=== PATIENT | male | born 1960 | race Caucasian/White ===

== ENCOUNTER 2024-01-05 09:29 | Day surgery (SDC) | payer OTHER ==
[2024-01-05] MEDS: diphenhydrAMINE 25 MG CAP PO SCH (10:45)
[2024-01-05] MEDS: Acetaminophen 500 MG TAB PO SCH (10:45)
[2024-01-05] MEDS: diphenhydrAMINE 25 MG CAP ONE (10:47)
[2024-01-05] MEDS: Acetaminophen 500 MG TAB ONE (10:47)
[2024-01-05 12:16] VITALS: BP 119/56; TEMP 98.4
== END 2024-01-05 12:17 | disposition home or self-care (01) ==
LOC: ONC/OP 09:29
PROVIDERS: ATTEND Internal Medicine
DX: D64.9 Anemia, unspecified (principal); D69.6 Thrombocytopenia, unspecified; Z88.5 Allergy status to narcotic agent; Z91.048 Other nonmedicinal substance allergy status
CPT/HCPCS: 36430; 86850; 86900; 86901; P9035

== ENCOUNTER 2024-01-16 14:49 | Day surgery (SDC) | payer OTHER ==
[2024-01-16] MEDS: Acetaminophen 500 MG TAB ONE (15:35)
[2024-01-16] MEDS ORDERED: diphenhydrAMINE 25 MG CAP PO SCH (16:00)
[2024-01-16] MEDS ORDERED: Acetaminophen 500 MG TAB PO SCH (16:00)
[2024-01-16 16:58] VITALS: BP 125/59; TEMP 98.7
== END 2024-01-16 17:03 | disposition home or self-care (01) ==
LOC: ONC/OP 14:49
PROVIDERS: ATTEND Internal Medicine
DX: D64.9 Anemia, unspecified (principal); D69.6 Thrombocytopenia, unspecified; L23.7 Allergic contact dermatitis due to plants, except food; Z91.09 Other allergy status, other than to drugs and biological substances
CPT/HCPCS: 36430; 86850; 86900; 86901; P9035

== ENCOUNTER 2024-01-26 13:08 | Day surgery (SDC) | payer OTHER ==
[2024-01-26] MEDS ORDERED: diphenhydrAMINE 25 MG CAP PO SCH (14:00)
[2024-01-26] MEDS ORDERED: Acetaminophen 500 MG TAB ONE (14:00)
[2024-01-26] MEDS: Acetaminophen 500 MG TAB PO SCH (14:02)
[2024-01-26 15:19] VITALS: BP 99/56; TEMP 97.9
== END 2024-01-26 15:47 | disposition home or self-care (01) ==
LOC: ONC/OP 13:08
PROVIDERS: ATTEND Internal Medicine
DX: D64.9 Anemia, unspecified (principal); D69.6 Thrombocytopenia, unspecified
CPT/HCPCS: 36430; 86900; 86901; P9035

== ENCOUNTER 2024-02-06 14:41 | Day surgery (SDC) | payer OTHER ==
[2024-02-06] MEDS ORDERED: diphenhydrAMINE 25 MG CAP PO SCH (15:00)
[2024-02-06] MEDS ORDERED: Acetaminophen 500 MG TAB ONE (15:24)
[2024-02-06] MEDS: Acetaminophen 500 MG TAB PO SCH (15:25)
[2024-02-06 17:13] VITALS: BP 92/57; TEMP 99
== END 2024-02-06 17:19 | disposition home or self-care (01) ==
LOC: ONC/OP 14:41
PROVIDERS: ATTEND Nurse Practitioner Family
DX: D64.9 Anemia, unspecified (principal); D69.6 Thrombocytopenia, unspecified; L23.7 Allergic contact dermatitis due to plants, except food; Z88.5 Allergy status to narcotic agent; Z91.09 Other allergy status, other than to drugs and biological substances
CPT/HCPCS: 36430; 86850; 86900; 86901; P9035

== ENCOUNTER 2024-02-09 12:40 | Day surgery (SDC) | payer OTHER ==
[2024-02-09] MEDS ORDERED: Acetaminophen 500 MG TAB ONE (14:43)
[2024-02-09] MEDS ORDERED: diphenhydrAMINE 25 MG CAP ONE (14:44)
[2024-02-09] MEDS: Acetaminophen 500 MG TAB PO SCH (14:45)
[2024-02-09] MEDS: diphenhydrAMINE 25 MG CAP PO SCH (14:46)
[2024-02-09 16:58] VITALS: BP 112/69; TEMP 98.5
== END 2024-02-09 16:59 | disposition home or self-care (01) ==
LOC: ONC/OP 12:40
PROVIDERS: ATTEND Nurse Practitioner Family
DX: D64.9 Anemia, unspecified (principal); D69.49 Other primary thrombocytopenia; Z88.5 Allergy status to narcotic agent; Z91.048 Other nonmedicinal substance allergy status
CPT/HCPCS: 36430; 86850; 86900; 86901; P9016

== ENCOUNTER 2024-02-16 13:09 | Day surgery (SDC) | payer OTHER ==
[2024-02-16] MEDS ORDERED: diphenhydrAMINE 25 MG CAP PO SCH (13:45)
[2024-02-16] MEDS ORDERED: Acetaminophen 500 MG TAB ONE (14:31)
[2024-02-16] MEDS: Acetaminophen 500 MG TAB PO SCH (14:32)
[2024-02-16 17:57] VITALS: BP 123/73; TEMP 97.6
== END 2024-02-16 17:57 | disposition home or self-care (01) ==
LOC: ONC/OP 13:09
PROVIDERS: ATTEND Nurse Practitioner Family
DX: D64.9 Anemia, unspecified (principal); D69.49 Other primary thrombocytopenia; Z91.048 Other nonmedicinal substance allergy status; Z88.5 Allergy status to narcotic agent
CPT/HCPCS: 36430; 86850; 86900; 86901; P9016; P9035

== ENCOUNTER 2024-04-03 08:56 | Day surgery (SDC) | payer OTHER ==
[~2024-04-03 08:56] MED LIST: diphenhydrAMINE 25 MG CAP PO SCH
[2024-04-03] MEDS: Acetaminophen 500 MG TAB PO SCH (10:11)
[2024-04-03] MEDS ORDERED: Acetaminophen 500 MG TAB ONE (10:11)
[2024-04-03 13:40] VITALS: BP 98/63; TEMP 98
== END 2024-04-03 13:28 | disposition home or self-care (01) ==
LOC: ONC/OP 08:56
PROVIDERS: ATTEND Internal Medicine
DX: D64.9 Anemia, unspecified (principal); D69.6 Thrombocytopenia, unspecified
CPT/HCPCS: 36430; 86850; 86900; 86901; P9016; P9035

== ENCOUNTER 2024-04-12 09:38 | Day surgery (SDC) | payer OTHER ==
[2024-04-12] MEDS ORDERED: Acetaminophen 500 MG TAB ONE (10:50)
[2024-04-12] MEDS: Acetaminophen 500 MG TAB PO SCH (10:56)
[2024-04-12 13:22] VITALS: BP 93/58; TEMP 98.7
== END 2024-04-12 13:32 | disposition home or self-care (01) ==
LOC: ONC/OP 09:38
PROVIDERS: ATTEND Internal Medicine
DX: D64.9 Anemia, unspecified (principal); D69.6 Thrombocytopenia, unspecified
CPT/HCPCS: 36430; 86850; 86900; 86901; P9016

== ENCOUNTER 2024-05-07 11:10 | Day surgery (SDC) | payer OTHER ==
[2024-05-07] MEDS ORDERED: Acetaminophen 500 MG TAB PO SCH (12:45)
[2024-05-07] MEDS ORDERED: diphenhydrAMINE 25 MG CAP PO SCH (12:45)
[2024-05-07] MEDS ORDERED: diphenhydrAMINE 50 MG/ML VIAL ONE (13:19)
[2024-05-07] MEDS ORDERED: Dexamethasone 10 MG/ML VIAL ONE (13:19)
[2024-05-07] MEDS: Dexamethasone 10 MG/ML VIAL SLOW IVP SCH (13:20)
[2024-05-07] MEDS: diphenhydrAMINE 50 MG/ML VIAL IVP SCH (13:20)
[2024-05-07 16:52] VITALS: BP 123/72; TEMP 97.9
== END 2024-05-07 17:04 | disposition home or self-care (01) ==
LOC: ONC/OP 11:10
PROVIDERS: ATTEND Internal Medicine
DX: D64.9 Anemia, unspecified (principal); D69.6 Thrombocytopenia, unspecified
CPT/HCPCS: 36430; 86850; 86900; 86901; 96375; J1100; J1200; P9016; P9035

== ENCOUNTER → 2024-05-21 | Day surgery (SDC) | payer OTHER ==
[~2024-05-21] MED LIST changes: +Acetaminophen 500 MG TAB PO SCH; +Dexamethasone 10 MG/ML VIAL ONE; +diphenhydrAMINE 50 MG/ML VIAL ONE
[2024-05-21] MEDS: diphenhydrAMINE 50 MG/ML VIAL IVP SCH (12:42)
[2024-05-21] MEDS: Dexamethasone 10 MG/ML VIAL SLOW IVP SCH (12:42)
[2024-05-21 15:57] VITALS: BP 119/69; TEMP 98.2
== END ==
LOC: ONC/OP 11:14
PROVIDERS: ATTEND Internal Medicine
DX: D64.9 Anemia, unspecified (principal); D69.6 Thrombocytopenia, unspecified; L23.7 Allergic contact dermatitis due to plants, except food; Z91.048 Other nonmedicinal substance allergy status; Z88.5 Allergy status to narcotic agent
CPT/HCPCS: 36430; 86850; 86900; 86901; 96374; 96375; J1100; J1200; P9016; P9035

== ENCOUNTER 2024-05-28 10:40 | Day surgery (SDC) | payer OTHER ==
[2024-05-28] MEDS ORDERED: diphenhydrAMINE 25 MG CAP PO SCH (11:15)
[2024-05-28] MEDS ORDERED: Dexamethasone 10 MG/ML VIAL ONE (12:05)
[2024-05-28] MEDS ORDERED: Acetaminophen 500 MG TAB ONE (12:05)
[2024-05-28] MEDS ORDERED: diphenhydrAMINE 50 MG/ML VIAL ONE (12:05)
[2024-05-28] MEDS: Dexamethasone 10 MG/ML VIAL SLOW IVP SCH (12:06)
[2024-05-28] MEDS: Acetaminophen 500 MG TAB PO SCH (12:06)
[2024-05-28] MEDS: diphenhydrAMINE 50 MG/ML VIAL IVP SCH (12:06)
[2024-05-28 15:34] VITALS: BP 104/71; TEMP 98.2
== END 2024-05-28 15:35 | disposition home or self-care (01) ==
LOC: ONC/OP 10:40
PROVIDERS: ATTEND Internal Medicine
DX: D64.9 Anemia, unspecified (principal); D69.6 Thrombocytopenia, unspecified; L23.7 Allergic contact dermatitis due to plants, except food; Z91.09 Other allergy status, other than to drugs and biological substances; Z88.5 Allergy status to narcotic agent
CPT/HCPCS: 36430; 86850; 86900; 86901; 96374; 96375; J1100; J1200; P9016; P9035

== ENCOUNTER 2024-06-04 10:35 | Day surgery (SDC) | payer OTHER, MEDICARE ==
[2024-06-04] MEDS ORDERED: diphenhydrAMINE 25 MG CAP PO SCH (11:00)
[2024-06-04] MEDS ORDERED: Dexamethasone 10 MG/ML VIAL ONE (11:37)
[2024-06-04] MEDS ORDERED: diphenhydrAMINE 50 MG/ML VIAL ONE (11:38)
[2024-06-04] MEDS: Dexamethasone 10 MG/ML VIAL SLOW IVP SCH (11:39)
[2024-06-04] MEDS: diphenhydrAMINE 50 MG/ML VIAL IVP SCH (11:39)
[2024-06-04] MEDS ORDERED: Acetaminophen 500 MG TAB ONE (11:51)
[2024-06-04] MEDS: Acetaminophen 500 MG TAB PO SCH (11:53)
[2024-06-04 12:48] VITALS: BP 97/73; TEMP 98.2
== END 2024-06-04 12:49 | disposition home or self-care (01) ==
LOC: ONC/OP 10:35
PROVIDERS: ATTEND Internal Medicine
DX: D64.9 Anemia, unspecified (principal); D69.6 Thrombocytopenia, unspecified; Z88.8 Allergy status to other drugs, medicaments and biological substances; Z88.5 Allergy status to narcotic agent; L23.7 Allergic contact dermatitis due to plants, except food; Z91.09 Other allergy status, other than to drugs and biological substances
CPT/HCPCS: 36430; 86850; 86900; 86901; 96374; 96375; J1100; J1200; P9035

== ENCOUNTER 2024-06-11 11:19 | Day surgery (SDC) | payer OTHER, MEDICARE ==
[2024-06-11] MEDS ORDERED: diphenhydrAMINE 25 MG CAP PO SCH (11:45)
[2024-06-11] MEDS ORDERED: Dexamethasone 10 MG/ML VIAL ONE (12:17)
[2024-06-11] MEDS ORDERED: Acetaminophen 500 MG TAB ONE (12:17)
[2024-06-11] MEDS ORDERED: diphenhydrAMINE 50 MG/ML VIAL ONE (12:17)
[2024-06-11] MEDS: Acetaminophen 500 MG TAB PO SCH (12:21)
[2024-06-11] MEDS: Dexamethasone 10 MG/ML VIAL SLOW IVP SCH (12:28)
[2024-06-11] MEDS: diphenhydrAMINE 50 MG/ML VIAL IVP SCH (12:28)
[2024-06-11 15:50] VITALS: BP 131/85; TEMP 99.7
== END 2024-06-11 16:03 | disposition home or self-care (01) ==
LOC: ONC/OP 11:19
PROVIDERS: ATTEND Internal Medicine
DX: D64.9 Anemia, unspecified (principal); D69.6 Thrombocytopenia, unspecified; L23.7 Allergic contact dermatitis due to plants, except food
CPT/HCPCS: 36430; 86850; 86900; 86901; 96374; 96375; J1100; J1200; P9016; P9035

== ENCOUNTER 2024-06-18 10:50 | Day surgery (SDC) | payer OTHER, MEDICARE ==
[2024-06-18] MEDS ORDERED: diphenhydrAMINE 25 MG CAP PO SCH (11:15)
[2024-06-18] MEDS ORDERED: Acetaminophen 500 MG TAB ONE (12:19)
[2024-06-18] MEDS ORDERED: Dexamethasone 10 MG/ML VIAL ONE (12:19)
[2024-06-18] MEDS ORDERED: diphenhydrAMINE 50 MG/ML VIAL ONE (12:19)
[2024-06-18] MEDS: Acetaminophen 500 MG TAB PO SCH (12:21)
[2024-06-18] MEDS: diphenhydrAMINE 50 MG/ML VIAL IVP SCH (12:22)
[2024-06-18] MEDS: Dexamethasone 10 MG/ML VIAL SLOW IVP SCH (12:22)
[2024-06-18 15:29] VITALS: BP 155/79; TEMP 98.1
== END 2024-06-18 15:29 | disposition home or self-care (01) ==
LOC: ONC/OP 10:50
PROVIDERS: ATTEND Internal Medicine
DX: D69.49 Other primary thrombocytopenia (principal); Z88.5 Allergy status to narcotic agent; Z88.8 Allergy status to other drugs, medicaments and biological substances; Z91.09 Other allergy status, other than to drugs and biological substances
CPT/HCPCS: 36430; 86850; 86900; 86901; 96375; J1100; J1200; P9016; P9035

== ENCOUNTER 2024-06-25 10:27 | Day surgery (SDC) | payer OTHER, MEDICARE ==
[2024-06-25] MEDS ORDERED: Acetaminophen 500 MG TAB ONE (13:11)
[2024-06-25] MEDS: diphenhydrAMINE 25 MG CAP PO SCH (13:15)
[2024-06-25] MEDS: Acetaminophen 500 MG TAB PO SCH (13:15)
[2024-06-25 15:17] VITALS: BP 113/72; TEMP 98.2
== END 2024-06-25 15:21 | disposition home or self-care (01) ==
LOC: ONC/OP 10:27
PROVIDERS: ATTEND Internal Medicine
DX: D69.6 Thrombocytopenia, unspecified (principal); D64.9 Anemia, unspecified; Z88.8 Allergy status to other drugs, medicaments and biological substances; Z88.5 Allergy status to narcotic agent; Z91.09 Other allergy status, other than to drugs and biological substances
CPT/HCPCS: 36430; 86850; 86900; 86901; P9035

== ENCOUNTER 2024-06-28 09:36 | Day surgery (SDC) | payer OTHER, MEDICARE ==
[2024-06-28] MEDS ORDERED: diphenhydrAMINE 25 MG CAP ONE (10:46)
[2024-06-28] MEDS ORDERED: Acetaminophen 500 MG TAB ONE (10:46)
[2024-06-28] MEDS: diphenhydrAMINE 25 MG CAP PO SCH (10:47)
[2024-06-28] MEDS: Acetaminophen 500 MG TAB PO SCH (10:47)
[2024-06-28 13:55] VITALS: BP 135/67; TEMP 98.1
== END 2024-06-28 13:57 | disposition home or self-care (01) ==
LOC: ONC/OP 09:36
PROVIDERS: ATTEND Internal Medicine
DX: D64.9 Anemia, unspecified (principal); D69.6 Thrombocytopenia, unspecified
CPT/HCPCS: 36430; 86850; 86900; 86901; P9016

== ENCOUNTER 2024-07-02 13:08 | Day surgery (SDC) | payer OTHER, MEDICARE ==
[2024-07-02] MEDS ORDERED: diphenhydrAMINE 25 MG CAP PO SCH (13:15)
[2024-07-02] MEDS ORDERED: diphenhydrAMINE 50 MG/ML VIAL ONE (13:29)
[2024-07-02] MEDS ORDERED: Dexamethasone 10 MG/ML VIAL ONE (13:29)
[2024-07-02] MEDS ORDERED: Acetaminophen 500 MG TAB ONE (13:29)
[2024-07-02] MEDS: Acetaminophen 500 MG TAB PO SCH (13:32)
[2024-07-02] MEDS: Dexamethasone 10 MG/ML VIAL SLOW IVP SCH (13:33)
[2024-07-02] MEDS: diphenhydrAMINE 50 MG/ML VIAL IVP SCH (13:33)
[2024-07-02 13:55] VITALS: TEMP 98.3
[2024-07-02 14:55] VITALS: BP 130/63
== END 2024-07-02 14:41 | disposition short-term general hospital (02) ==
LOC: ONC/OP 13:08
PROVIDERS: ATTEND Internal Medicine
DX: D64.9 Anemia, unspecified (principal); D69.6 Thrombocytopenia, unspecified; Z88.8 Allergy status to other drugs, medicaments and biological substances; Z88.5 Allergy status to narcotic agent; Z91.09 Other allergy status, other than to drugs and biological substances
CPT/HCPCS: 36430; 86850; 86900; 86901; 99213; G0463; J1100; J1200; P9035

== ENCOUNTER 2024-07-02 14:50 | Emergency (ER) | payer OTHER, MEDICARE ==
[2024-07-02] MEDS ORDERED: diphenhydrAMINE 50 MG/ML VIAL ONE ×2 (15:18→17:19)
[2024-07-02] MEDS ORDERED: EPINEPHrine 1 MG/ML VIAL ONE (15:18)
[2024-07-02] MEDS ORDERED: methylPREDNISolone Sod Succ/PF 125 MG/2 ML VIAL ONE (15:18)
[2024-07-02] MEDS ORDERED: Famotidine/PF 20 mg/2ml Vial ONE (15:18)
[2024-07-02 15:20] LABS: Hematocrit 23.4 % (42.0-52.0); Mean Corpuscular HGB CONC 34.2 g/dL (32.0-36.0); Mean Corpuscular Hemoglobin 30.9 pg (27.0-31.0); Mean Corpuscular Volume 90.3 fL (78.0-98.0); Mean Platelet Volume 9.2 fL (7.4-10.4); Platelet Count 50 10x3/uL (130-400); Red Blood Cell (RBC) Count 2.59 mill/uL (4.70-6.10)
[2024-07-02 15:33] LABS: ALT (SGPT) 41 U/L (8-55); AST (SGOT) 21 U/L (5-34); Albumin 3.5 g/dL (3.4-4.8); Alkaline Phosphatase 143 U/L (40-110); Anion Gap 14 mmol/L (10-20); BUN (Urea Nitrogen) 18 mg/dL (8.4-25.7); Bilirubin, Total 0.3 mg/dL (0.2-1.2); Calc. Creatinine Clearance 0 mL/min (70-130); Calcium 8.5 mg/dL (7.8-10.44); Carbon Dioxide 18 mmol/L (23-31); Chloride 113 mmol/L (98-107); Estimated GFR 84; Globulin 2.9 g/dL (2.4-3.5); Glucose 166 mg/dL (80-115); Potassium 3.7 mmol/L (3.5-5.1); Protein, Total 6.4 g/dL (5.8-8.1); Sodium 141 mmol/L (136-145)
[2024-07-02 15:35] LABS: Troponin I Less than 0.010 ng/mL (< 0.028)
[2024-07-02 15:50] LABS: Anisocytosis SLIGHT = 6-15 cells HPF (0-5); Band 8 % (5-11); Eosinophils 4 % (0-10); Lymphocytes 62 % (21-51); Metamyelocyte 1 % (0-0); Monocytes 4 % (0-10); Neutrophil 8 % (42-75); Ovalocytes SLIGHT = 2-5 cells HPF (0-1); Platelet Adequacy Comment Platelets Decreased; Polychromasia SLIGHT = 2-3 cells HPF (0-2); Reactive Lymphocytes 12 % (0-10); Smudge Cells 46.9 %
[2024-07-02] MEDS ORDERED: Dexamethasone 10 MG/ML VIAL ONE (17:19)
[2024-07-02] MEDS ORDERED: Morphine 2 MG/ML VIAL ONE (17:45)
[2024-07-02] MEDS ORDERED: Acetaminophen 500 MG TAB ONE (17:48)
== END 2024-07-02 17:57 | disposition home or self-care (01) ==
LOC: ERS 14:50
DX: T78.40XA Allergy, unspecified, initial encounter (principal); T80.92XA Unspecified transfusion reaction, initial encounter; I10 Essential (primary) hypertension; F17.210 Nicotine dependence, cigarettes, uncomplicated; Z55.6 Problems related to health literacy; Z79.899 Other long term (current) drug therapy
CPT/HCPCS: 36415; 71045; 83880; 84484; 85025; 93005; 94644; 96372; 96374; 96375; 96376; J0171; J1100; J1200; J2272; J2919; J3490

== ENCOUNTER 2024-07-04 10:18 | Day surgery (SDC) | payer OTHER, MEDICARE ==
[2024-07-04] MEDS ORDERED: diphenhydrAMINE 25 MG CAP ONE (12:07)
[2024-07-04] MEDS ORDERED: Acetaminophen 500 MG TAB ONE (12:07)
[2024-07-04] MEDS: diphenhydrAMINE 25 MG CAP PO SCH (12:08)
[2024-07-04] MEDS: Acetaminophen 500 MG TAB PO SCH (12:08)
[2024-07-04 15:31] VITALS: BP 109/66; TEMP 98.4
== END 2024-07-04 15:49 | disposition home or self-care (01) ==
LOC: ONC/OP 10:18
PROVIDERS: ATTEND Internal Medicine
DX: D64.9 Anemia, unspecified (principal); D69.6 Thrombocytopenia, unspecified; Z88.8 Allergy status to other drugs, medicaments and biological substances; Z88.5 Allergy status to narcotic agent; Z91.09 Other allergy status, other than to drugs and biological substances
CPT/HCPCS: 36430; 86850; 86900; 86901; 87040; P9016

== ENCOUNTER 2024-07-09 09:20 | Day surgery (SDC) | payer OTHER, MEDICARE ==
[2024-07-09] MEDS ORDERED: diphenhydrAMINE 25 MG CAP PO SCH (10:00)
[2024-07-09] MEDS ORDERED: Acetaminophen 500 MG TAB PO SCH (10:00)
[2024-07-09] MEDS ORDERED: diphenhydrAMINE 50 MG/ML VIAL ONE (10:16)
[2024-07-09] MEDS ORDERED: Famotidine/PF 20 mg/2ml Vial ONE (10:16)
[2024-07-09] MEDS ORDERED: Dexamethasone 10 MG/ML VIAL ONE (10:17)
[2024-07-09] MEDS: Dexamethasone 10 MG/ML VIAL SLOW IVP SCH (10:18)
[2024-07-09] MEDS: Famotidine/PF 20 mg/2ml Vial SLOW IVP SCH (10:18)
[2024-07-09] MEDS: diphenhydrAMINE 50 MG/ML VIAL IVP SCH (10:18)
[2024-07-09 11:08] VITALS: TEMP 97.6
[2024-07-09 13:09] VITALS: BP 125/73
== END 2024-07-09 12:14 | disposition home or self-care (01) ==
LOC: ONC/OP 09:20
PROVIDERS: ATTEND Internal Medicine
DX: D69.49 Other primary thrombocytopenia (principal); Z88.8 Allergy status to other drugs, medicaments and biological substances; Z88.5 Allergy status to narcotic agent; Z91.09 Other allergy status, other than to drugs and biological substances
CPT/HCPCS: 36430; 86850; 86900; 86901; J1100; J1200; J3490; P9035

== ENCOUNTER 2024-07-16 09:20 | Day surgery (SDC) | payer OTHER, MEDICARE ==
[2024-07-16] MEDS ORDERED: diphenhydrAMINE 25 MG CAP PO SCH (09:30)
[2024-07-16] MEDS ORDERED: Famotidine/PF 20 mg/2ml Vial ONE (10:33)
[2024-07-16] MEDS ORDERED: Acetaminophen 500 MG TAB ONE (10:33)
[2024-07-16] MEDS ORDERED: diphenhydrAMINE 50 MG/ML VIAL ONE (10:33)
[2024-07-16] MEDS ORDERED: Dexamethasone 10 MG/ML VIAL ONE (10:33)
[2024-07-16] MEDS: Acetaminophen 500 MG TAB PO SCH (10:36)
[2024-07-16] MEDS: Dexamethasone 10 MG/ML VIAL SLOW IVP SCH (10:37)
[2024-07-16] MEDS: Famotidine/PF 20 mg/2ml Vial SLOW IVP SCH (10:37)
[2024-07-16] MEDS: diphenhydrAMINE 50 MG/ML VIAL IVP SCH (10:37)
[2024-07-16 14:03] VITALS: BP 119/84; TEMP 98.3
== END 2024-07-16 14:11 | disposition home or self-care (01) ==
LOC: ONC/OP 09:20
PROVIDERS: ATTEND Internal Medicine
DX: D64.9 Anemia, unspecified (principal); D69.6 Thrombocytopenia, unspecified; Z88.8 Allergy status to other drugs, medicaments and biological substances; Z88.5 Allergy status to narcotic agent; Z91.09 Other allergy status, other than to drugs and biological substances
CPT/HCPCS: 36430; 86850; 86900; 86901; 96374; 96375; J1100; J1200; J3490; P9016; P9035

== ENCOUNTER 2024-07-23 10:02 | Day surgery (SDC) | payer OTHER, MEDICARE ==
[2024-07-23] MEDS ORDERED: diphenhydrAMINE 25 MG CAP PO SCH (10:30)
[2024-07-23] MEDS ORDERED: Dexamethasone 10 MG/ML VIAL ONE (10:42)
[2024-07-23] MEDS ORDERED: Famotidine/PF 20 mg/2ml Vial ONE (10:42)
[2024-07-23] MEDS ORDERED: diphenhydrAMINE 50 MG/ML VIAL ONE (10:42)
[2024-07-23] MEDS ORDERED: Acetaminophen 500 MG TAB ONE (10:42)
[2024-07-23] MEDS: Acetaminophen 500 MG TAB PO SCH (10:43)
[2024-07-23] MEDS: diphenhydrAMINE 50 MG/ML VIAL IVP SCH (10:44)
[2024-07-23] MEDS: Famotidine/PF 20 mg/2ml Vial SLOW IVP SCH (10:44)
[2024-07-23] MEDS: Dexamethasone 10 MG/ML VIAL SLOW IVP SCH (10:44)
[2024-07-23 15:09] VITALS: BP 113/67; TEMP 98.1
== END 2024-07-23 15:00 | disposition home or self-care (01) ==
LOC: ONC/OP 10:02
PROVIDERS: ATTEND Internal Medicine
DX: D64.9 Anemia, unspecified (principal); D69.6 Thrombocytopenia, unspecified; Z88.8 Allergy status to other drugs, medicaments and biological substances; Z88.5 Allergy status to narcotic agent; Z91.048 Other nonmedicinal substance allergy status
CPT/HCPCS: 36430; 86850; 86900; 86901; 96374; 96375; J1100; J1200; J3490; P9016; P9035

== ENCOUNTER 2024-07-30 09:05 | Day surgery (SDC) | payer OTHER, MEDICARE ==
[2024-07-30] MEDS ORDERED: diphenhydrAMINE 25 MG CAP PO SCH (09:45)
[2024-07-30] MEDS ORDERED: diphenhydrAMINE 50 MG/ML VIAL ONE (09:56)
[2024-07-30] MEDS ORDERED: Acetaminophen 500 MG TAB ONE (09:56)
[2024-07-30] MEDS ORDERED: Dexamethasone 10 MG/ML VIAL ONE (09:56)
[2024-07-30] MEDS ORDERED: Famotidine/PF 20 mg/2ml Vial ONE (09:57)
[2024-07-30] MEDS: Acetaminophen 500 MG TAB PO SCH (10:03)
[2024-07-30] MEDS: diphenhydrAMINE 50 MG/ML VIAL IVP SCH (10:04)
[2024-07-30] MEDS: Famotidine/PF 20 mg/2ml Vial SLOW IVP SCH (10:04)
[2024-07-30] MEDS: Dexamethasone 10 MG/ML VIAL SLOW IVP SCH (10:04)
[2024-07-30 13:19] VITALS: BP 137/79; TEMP 97.9
== END 2024-07-30 13:32 | disposition home or self-care (01) ==
LOC: ONC/OP 09:05
PROVIDERS: ATTEND Internal Medicine
DX: D64.9 Anemia, unspecified (principal); D69.6 Thrombocytopenia, unspecified; Z88.8 Allergy status to other drugs, medicaments and biological substances; Z88.5 Allergy status to narcotic agent; Z91.09 Other allergy status, other than to drugs and biological substances
CPT/HCPCS: 36430; 86850; 86900; 86901; 96374; 96375; J1100; J1200; J3490; P9016; P9035

== ENCOUNTER 2024-08-05 09:15 | Day surgery (SDC) | payer OTHER, MEDICARE ==
[~2024-08-05 09:15] MED LIST changes: -Dexamethasone 10 MG/ML VIAL ONE; -diphenhydrAMINE 50 MG/ML VIAL ONE
[2024-08-05] MEDS ORDERED: Dexamethasone 10 MG/ML VIAL ONE (10:27)
[2024-08-05] MEDS ORDERED: diphenhydrAMINE 50 MG/ML VIAL ONE (10:28)
[2024-08-05] MEDS ORDERED: Famotidine/PF 20 mg/2ml Vial ONE (10:28)
[2024-08-05] MEDS: Dexamethasone 10 MG/ML VIAL SLOW IVP SCH (10:29)
[2024-08-05] MEDS: Famotidine/PF 20 mg/2ml Vial SLOW IVP SCH (10:29)
[2024-08-05] MEDS: diphenhydrAMINE 50 MG/ML VIAL IVP SCH (10:29)
[2024-08-05 14:48] VITALS: BP 130/70; TEMP 98.8
== END 2024-08-05 14:50 | disposition home or self-care (01) ==
LOC: ONC/OP 09:15
PROVIDERS: ATTEND Internal Medicine
DX: D64.9 Anemia, unspecified (principal); D69.6 Thrombocytopenia, unspecified; Z88.8 Allergy status to other drugs, medicaments and biological substances; Z88.5 Allergy status to narcotic agent; Z91.09 Other allergy status, other than to drugs and biological substances
CPT/HCPCS: 36430; 86850; 86900; 86901; 96374; 96375; J1100; J1200; J3490; P9016; P9035

== ENCOUNTER 2024-08-12 12:08 | Day surgery (SDC) | payer MEDICARE, OTHER ==
[2024-08-12] MEDS ORDERED: diphenhydrAMINE 50 MG/ML VIAL IVP SCH (12:30)
[2024-08-12] MEDS ORDERED: diphenhydrAMINE 25 MG CAP PO SCH (12:30)
[2024-08-12] MEDS ORDERED: Dexamethasone 10 MG/ML VIAL ONE (13:30)
[2024-08-12] MEDS ORDERED: diphenhydrAMINE 50 MG/ML VIAL ONE (13:30)
[2024-08-12] MEDS ORDERED: Acetaminophen 500 MG TAB ONE (13:30)
[2024-08-12] MEDS: Acetaminophen 500 MG TAB PO SCH (13:31)
[2024-08-12] MEDS ORDERED: Famotidine/PF 20 mg/2ml Vial ONE (13:31)
[2024-08-12] MEDS: Famotidine/PF 20 mg/2ml Vial SLOW IVP SCH (13:32)
[2024-08-12] MEDS: Dexamethasone 10 MG/ML VIAL SLOW IVP SCH (13:34)
[2024-08-12] MEDS: diphenhydrAMINE 50 MG/ML VIAL IVP SCH (13:38)
[2024-08-12 17:10] VITALS: BP 125/72; TEMP 97.8
== END 2024-08-12 17:28 | disposition home or self-care (01) ==
LOC: ONC/OP 12:08
PROVIDERS: ATTEND Internal Medicine
DX: D64.9 Anemia, unspecified (principal); D69.49 Other primary thrombocytopenia; Z88.5 Allergy status to narcotic agent; Z91.09 Other allergy status, other than to drugs and biological substances; D61.89 Other specified aplastic anemias and other bone marrow failure syndromes
CPT/HCPCS: 36430; 86850; 86900; 86901; 86920; 96374; 96375; J1100; J1200; J3490; P9016; P9035; 85025

== ENCOUNTER 2024-08-20 09:24 | Day surgery (SDC) | payer OTHER ==
[2024-08-20] MEDS ORDERED: diphenhydrAMINE 25 MG CAP PO SCH (10:00)
[2024-08-20] MEDS ORDERED: Acetaminophen 500 MG TAB ONE (10:28)
[2024-08-20] MEDS ORDERED: Dexamethasone 10 MG/ML VIAL ONE (10:29)
[2024-08-20] MEDS ORDERED: Famotidine/PF 20 mg/2ml Vial ONE (10:29)
[2024-08-20] MEDS ORDERED: diphenhydrAMINE 50 MG/ML VIAL ONE (10:29)
[2024-08-20] MEDS: Dexamethasone 10 MG/ML VIAL SLOW IVP SCH (10:30)
[2024-08-20] MEDS: Acetaminophen 500 MG TAB PO SCH (10:30)
[2024-08-20] MEDS: Famotidine/PF 20 mg/2ml Vial SLOW IVP SCH (10:31)
[2024-08-20] MEDS: diphenhydrAMINE 50 MG/ML VIAL IVP SCH (10:31)
[2024-08-20 14:11] VITALS: BP 139/74; TEMP 98
== END 2024-08-20 14:12 | disposition home or self-care (01) ==
LOC: ONC/OP 09:24
PROVIDERS: ATTEND Internal Medicine
DX: D64.9 Anemia, unspecified (principal); D69.49 Other primary thrombocytopenia; Z88.8 Allergy status to other drugs, medicaments and biological substances; Z88.5 Allergy status to narcotic agent; Z91.048 Other nonmedicinal substance allergy status
CPT/HCPCS: 36430; 86850; 86900; 86901; 86920; 96374; 96375; J1100; J1200; J3490; P9016; P9035

== ENCOUNTER 2024-08-27 10:06 | Day surgery (SDC) | payer OTHER ==
[2024-08-27] MEDS ORDERED: diphenhydrAMINE 25 MG CAP PO SCH (10:45)
[2024-08-27] MEDS ORDERED: Acetaminophen 500 MG TAB PO SCH (10:45)
[2024-08-27] MEDS ORDERED: Dexamethasone 10 MG/ML VIAL ONE (10:55)
[2024-08-27] MEDS ORDERED: Famotidine/PF 20 mg/2ml Vial ONE (10:56)
[2024-08-27] MEDS ORDERED: diphenhydrAMINE 50 MG/ML VIAL ONE (10:56)
[2024-08-27] MEDS: Famotidine/PF 20 mg/2ml Vial SLOW IVP SCH (10:57)
[2024-08-27] MEDS: Dexamethasone 10 MG/ML VIAL SLOW IVP SCH (10:57)
[2024-08-27] MEDS: diphenhydrAMINE 50 MG/ML VIAL IVP SCH (10:57)
[2024-08-27 12:14] VITALS: BP 130/78; TEMP 97.5
== END 2024-08-27 12:11 | disposition home or self-care (01) ==
LOC: ONC/OP 10:06
PROVIDERS: ATTEND Internal Medicine
DX: D64.9 Anemia, unspecified (principal); D69.6 Thrombocytopenia, unspecified; Z88.8 Allergy status to other drugs, medicaments and biological substances; Z88.5 Allergy status to narcotic agent; Z91.09 Other allergy status, other than to drugs and biological substances
CPT/HCPCS: 36430; 86850; 86900; 86901; J1100; J1200; J3490; P9035

== ENCOUNTER 2024-09-13 08:38 | Day surgery (SDC) | payer OTHER ==
[~2024-09-13 08:38] MED LIST changes: +Dexamethasone 10 MG/ML VIAL SLOW IVP SCH; +Famotidine/PF 20 mg/2ml Vial SLOW IVP SCH; +diphenhydrAMINE 50 MG/ML VIAL IVP SCH
[2024-09-13] MEDS ORDERED: diphenhydrAMINE 50 MG/ML VIAL ONE (09:14)
[2024-09-13] MEDS ORDERED: Famotidine/PF 20 mg/2ml Vial ONE (09:14)
[2024-09-13] MEDS ORDERED: Dexamethasone 10 MG/ML VIAL ONE (09:14)
[2024-09-13 11:09] VITALS: BP 137/68; TEMP 98.5
== END 2024-09-13 11:11 | disposition home or self-care (01) ==
LOC: ONC/OP 08:38
PROVIDERS: ATTEND Internal Medicine
DX: D69.6 Thrombocytopenia, unspecified (principal); D64.9 Anemia, unspecified; Z88.8 Allergy status to other drugs, medicaments and biological substances; Z88.5 Allergy status to narcotic agent; Z91.09 Other allergy status, other than to drugs and biological substances
CPT/HCPCS: 36430; 86850; 86900; 86901; 96374; 96375; J1100; J1200; J3490; P9035

== ENCOUNTER 2024-09-24 09:32 | Day surgery (SDC) | payer OTHER ==
[2024-09-24] MEDS ORDERED: diphenhydrAMINE 25 MG CAP PO SCH (10:15)
[2024-09-24] MEDS ORDERED: Famotidine/PF 20 mg/2ml Vial ONE (10:20)
[2024-09-24] MEDS ORDERED: diphenhydrAMINE 50 MG/ML VIAL ONE (10:20)
[2024-09-24] MEDS ORDERED: Acetaminophen 500 MG TAB ONE (10:20)
[2024-09-24] MEDS ORDERED: Dexamethasone 10 MG/ML VIAL ONE (10:20)
[2024-09-24] MEDS: Acetaminophen 500 MG TAB PO SCH (10:25)
[2024-09-24] MEDS: Famotidine/PF 20 mg/2ml Vial SLOW IVP SCH (10:26)
[2024-09-24] MEDS: Dexamethasone 10 MG/ML VIAL SLOW IVP SCH (10:26)
[2024-09-24] MEDS: diphenhydrAMINE 50 MG/ML VIAL IVP SCH (10:26)
[2024-09-24 12:45] VITALS: BP 133/80; TEMP 98.2
== END 2024-09-24 12:47 | disposition home or self-care (01) ==
LOC: ONC/OP 09:32
PROVIDERS: ATTEND Internal Medicine
DX: D69.49 Other primary thrombocytopenia (principal); D61.89 Other specified aplastic anemias and other bone marrow failure syndromes; Z88.8 Allergy status to other drugs, medicaments and biological substances; Z88.5 Allergy status to narcotic agent; Z91.048 Other nonmedicinal substance allergy status
CPT/HCPCS: 36430; 86850; 86900; 86901; J1100; J1200; J3490; P9035; 96374; 96375

== ENCOUNTER 2024-10-08 09:37 | Day surgery (SDC) | payer OTHER ==
[2024-10-08] MEDS ORDERED: diphenhydrAMINE 25 MG CAP PO SCH (10:00)
[2024-10-08] MEDS ORDERED: Acetaminophen 500 MG TAB ONE (10:29)
[2024-10-08] MEDS ORDERED: Famotidine/PF 20 mg/2ml Vial ONE (10:29)
[2024-10-08] MEDS ORDERED: Dexamethasone 10 MG/ML VIAL ONE (10:29)
[2024-10-08] MEDS ORDERED: diphenhydrAMINE 50 MG/ML VIAL ONE (10:29)
[2024-10-08] MEDS: Acetaminophen 500 MG TAB PO SCH (10:31)
[2024-10-08] MEDS: Dexamethasone 10 MG/ML VIAL SLOW IVP SCH (10:31)
[2024-10-08] MEDS: Famotidine/PF 20 mg/2ml Vial SLOW IVP SCH (10:31)
[2024-10-08] MEDS: diphenhydrAMINE 50 MG/ML VIAL IVP SCH (10:31)
[2024-10-08 11:41] VITALS: TEMP 98.2
[2024-10-08 11:43] VITALS: BP 131/70
== END 2024-10-08 12:05 | disposition home or self-care (01) ==
LOC: ONC/OP 09:37
PROVIDERS: ATTEND Internal Medicine
DX: D69.49 Other primary thrombocytopenia (principal); D61.89 Other specified aplastic anemias and other bone marrow failure syndromes; Z88.8 Allergy status to other drugs, medicaments and biological substances; Z88.5 Allergy status to narcotic agent; Z91.048 Other nonmedicinal substance allergy status
CPT/HCPCS: 36430; 86850; 86900; 86901; 96374; 96375; J1100; J1200; J3490; P9035

== ENCOUNTER 2025-03-27 08:41 | Day surgery (SDC) | payer MEDICARE ==
[~2025-03-27 08:41] MED LIST changes: -Acetaminophen 500 MG TAB PO SCH; -Dexamethasone 10 MG/ML VIAL SLOW IVP SCH; -Famotidine/PF 20 mg/2ml Vial SLOW IVP SCH; -diphenhydrAMINE 50 MG/ML VIAL IVP SCH
[2025-03-27] MEDS ORDERED: Dexamethasone 10 MG/ML VIAL ONE (10:08)
[2025-03-27] MEDS ORDERED: Famotidine/PF 20 mg/2ml Vial ONE (10:08)
[2025-03-27] MEDS ORDERED: diphenhydrAMINE 50 MG/ML VIAL ONE (10:08)
[2025-03-27] MEDS ORDERED: Acetaminophen 500 MG TAB ONE (10:08)
[2025-03-27] MEDS: Dexamethasone 10 MG/ML VIAL SLOW IVP SCH (10:10)
[2025-03-27] MEDS: Acetaminophen 500 MG TAB PO SCH (10:10)
[2025-03-27] MEDS: diphenhydrAMINE 50 MG/ML VIAL IVP SCH (10:10)
[2025-03-27] MEDS: Famotidine/PF 20 mg/2ml Vial SLOW IVP SCH (10:10)
[2025-03-27 10:29] LABS: ALT (SGPT) 36 U/L (Less than 45); AST (SGOT) 25 U/L (11-34); Albumin 3.8 g/dL (3.1-4.5); Alkaline Phosphatase 115 U/L (40-110); Anion Gap 12 mmol/L (10-20); BUN (Urea Nitrogen) 19 mg/dL (8.4-25.7); Bilirubin, Total 0.4 mg/dL (0.3-1.2); Calc. Creatinine Clearance 0 mL/min (70-130); Calcium 8.6 mg/dL (7.8-10.44); Carbon Dioxide 23 mmol/L (23-31); Chloride 110 mmol/L (98-107); Globulin 3.1 g/dL (2.4-3.5); Glucose 109 mg/dL (80-115); Potassium 3.5 mmol/L (3.5-5.1); Sodium 141 mmol/L (136-145)
[2025-03-27 11:33] VITALS: TEMP 97.7
[2025-03-27 12:25] VITALS: BP 151/92
== END 2025-03-27 12:25 | disposition home or self-care (01) ==
LOC: ONC/OP 08:41
PROVIDERS: ATTEND Internal Medicine
DX: D69.49 Other primary thrombocytopenia (principal); D61.89 Other specified aplastic anemias and other bone marrow failure syndromes; Z88.5 Allergy status to narcotic agent; Z91.048 Other nonmedicinal substance allergy status
CPT/HCPCS: 36430; 80053; 80158; 86850; 86900; 86901; 96411; J1100; J1200; J1308; P9035

== ENCOUNTER 2025-04-15 12:56 | Day surgery (SDC) | payer OTHER ==
[2025-04-15] MEDS ORDERED: diphenhydrAMINE 25 MG CAP ONE (14:03)
[2025-04-15] MEDS ORDERED: Acetaminophen 500 MG TAB ONE (14:03)
[2025-04-15] MEDS: diphenhydrAMINE 25 MG CAP PO SCH (14:05)
[2025-04-15] MEDS: Acetaminophen 500 MG TAB PO SCH (14:05)
[2025-04-15] MEDS ORDERED: Dexamethasone 10 MG/ML VIAL ONE (14:11)
[2025-04-15] MEDS ORDERED: diphenhydrAMINE 50 MG/ML VIAL ONE (14:11)
[2025-04-15] MEDS ORDERED: Famotidine/PF 20 mg/2ml Vial ONE (14:11)
[2025-04-15] MEDS: diphenhydrAMINE 50 MG/ML VIAL IVP SCH (14:12)
[2025-04-15] MEDS: Famotidine/PF 20 mg/2ml Vial SLOW IVP SCH (14:12)
[2025-04-15] MEDS: Dexamethasone 10 MG/ML VIAL SLOW IVP SCH (14:19)
[2025-04-15 15:26] VITALS: BP 131/75; TEMP 98
[2025-04-18] MEDS ORDERED: PNEUMOC 20-VAL CONJ-DIP CRM/PF 0.5 ML SYRINGE IM ONE (09:00)
== END 2025-04-15 15:31 | disposition home or self-care (01) ==
LOC: ONC/OP 12:56
PROVIDERS: ATTEND Internal Medicine
DX: D69.49 Other primary thrombocytopenia (principal); D61.89 Other specified aplastic anemias and other bone marrow failure syndromes; Z88.8 Allergy status to other drugs, medicaments and biological substances; Z88.5 Allergy status to narcotic agent; Z91.048 Other nonmedicinal substance allergy status
CPT/HCPCS: 36430; 86850; 86900; 86901; J1100; J1200; J1308; P9035; 80053; 96374; 96375

== ENCOUNTER 2025-04-22 09:01 | Day surgery (SDC) | payer OTHER ==
[2025-04-22] MEDS ORDERED: diphenhydrAMINE 25 MG CAP PO SCH (09:45)
[2025-04-22] MEDS ORDERED: Acetaminophen 500 MG TAB ONE (09:53)
[2025-04-22] MEDS ORDERED: diphenhydrAMINE 50 MG/ML VIAL ONE (09:53)
[2025-04-22] MEDS ORDERED: Dexamethasone 10 MG/ML VIAL ONE (09:53)
[2025-04-22] MEDS ORDERED: Famotidine/PF 20 mg/2ml Vial ONE (09:53)
[2025-04-22] MEDS: Acetaminophen 500 MG TAB PO SCH (09:55)
[2025-04-22] MEDS: diphenhydrAMINE 50 MG/ML VIAL IVP SCH (09:55)
[2025-04-22] MEDS: Famotidine/PF 20 mg/2ml Vial SLOW IVP SCH (09:55)
[2025-04-22] MEDS: Dexamethasone 10 MG/ML VIAL SLOW IVP SCH (09:55)
[2025-04-22 11:46] VITALS: BP 131/82; TEMP 98.2
== END 2025-04-22 11:47 | disposition home or self-care (01) ==
LOC: ONC/OP 09:01
PROVIDERS: ATTEND Internal Medicine
DX: D69.49 Other primary thrombocytopenia (principal); D61.89 Other specified aplastic anemias and other bone marrow failure syndromes; Z88.8 Allergy status to other drugs, medicaments and biological substances; Z88.5 Allergy status to narcotic agent; Z91.048 Other nonmedicinal substance allergy status
CPT/HCPCS: 36430; 86850; 86900; 86901; 96374; 96375; J1100; J1200; J1308; P9035; 80053

== ENCOUNTER 2025-04-29 09:50 | Day surgery (SDC) | payer MEDICARE, OTHER ==
[2025-04-29] MEDS ORDERED: diphenhydrAMINE 25 MG CAP PO SCH (10:45)
[2025-04-29] MEDS ORDERED: Dexamethasone 10 MG/ML VIAL ONE (11:00)
[2025-04-29] MEDS ORDERED: Famotidine/PF 20 mg/2ml Vial ONE (11:00)
[2025-04-29] MEDS ORDERED: diphenhydrAMINE 50 MG/ML VIAL ONE (11:00)
[2025-04-29] MEDS ORDERED: Acetaminophen 500 MG TAB ONE (11:00)
[2025-04-29] MEDS: Acetaminophen 500 MG TAB PO SCH (11:03)
[2025-04-29] MEDS: diphenhydrAMINE 50 MG/ML VIAL IVP SCH (11:04)
[2025-04-29] MEDS: Dexamethasone 10 MG/ML VIAL SLOW IVP SCH (11:04)
[2025-04-29] MEDS: Famotidine/PF 20 mg/2ml Vial SLOW IVP SCH (11:04)
[2025-04-29 12:17] VITALS: BP 147/71; TEMP 97.4
[2025-04-29] MEDS ORDERED: PNEUMOC 20-VAL CONJ-DIP CRM/PF 0.5 ML SYRINGE IM ONE (14:00)
== END 2025-04-29 12:24 | disposition home or self-care (01) ==
LOC: ONC/OP 09:50
PROVIDERS: ATTEND Internal Medicine
DX: D69.49 Other primary thrombocytopenia (principal); D61.89 Other specified aplastic anemias and other bone marrow failure syndromes; Z88.8 Allergy status to other drugs, medicaments and biological substances; Z88.5 Allergy status to narcotic agent; Z91.048 Other nonmedicinal substance allergy status
CPT/HCPCS: 36430; 86850; 86900; 86901; 96374; 96375; J1100; J1200; J1308; P9035; 80053

== ENCOUNTER 2025-05-06 10:34 | Day surgery (SDC) | payer MEDICARE, OTHER ==
[2025-05-06] MEDS ORDERED: diphenhydrAMINE 25 MG CAP PO SCH (11:45)
[2025-05-06] MEDS ORDERED: Famotidine/PF 20 mg/2ml Vial ONE (11:55)
[2025-05-06] MEDS ORDERED: diphenhydrAMINE 50 MG/ML VIAL ONE (11:55)
[2025-05-06] MEDS ORDERED: Dexamethasone 10 MG/ML VIAL ONE (11:55)
[2025-05-06] MEDS ORDERED: Acetaminophen 500 MG TAB ONE (11:55)
[2025-05-06] MEDS: Acetaminophen 500 MG TAB PO SCH (11:58)
[2025-05-06] MEDS: Dexamethasone 10 MG/ML VIAL SLOW IVP SCH (11:59)
[2025-05-06] MEDS: Famotidine/PF 20 mg/2ml Vial SLOW IVP SCH (11:59)
[2025-05-06] MEDS: diphenhydrAMINE 50 MG/ML VIAL IVP SCH (11:59)
[2025-05-06 16:21] VITALS: BP 120/71; TEMP 98.1
== END 2025-05-06 17:07 | disposition home or self-care (01) ==
LOC: ONC/OP 10:34
PROVIDERS: ATTEND Internal Medicine
DX: D61.89 Other specified aplastic anemias and other bone marrow failure syndromes (principal); D69.49 Other primary thrombocytopenia; Z88.8 Allergy status to other drugs, medicaments and biological substances; Z88.5 Allergy status to narcotic agent; Z91.048 Other nonmedicinal substance allergy status
CPT/HCPCS: 36430; 86850; 86900; 86901; 86920; 96374; 96375; J1100; J1200; P9016; P9035; 36415; 80053

== ENCOUNTER 2025-05-13 09:34 | Day surgery (SDC) | payer MEDICARE, OTHER ==
[2025-05-13] MEDS ORDERED: diphenhydrAMINE 25 MG CAP PO SCH (10:00)
[2025-05-13] MEDS ORDERED: Dexamethasone 10 MG/ML VIAL ONE (11:27)
[2025-05-13] MEDS ORDERED: diphenhydrAMINE 50 MG/ML VIAL ONE (11:28)
[2025-05-13] MEDS ORDERED: Acetaminophen 500 MG TAB ONE (11:28)
[2025-05-13] MEDS: Dexamethasone 10 MG/ML VIAL SLOW IVP SCH (11:32)
[2025-05-13] MEDS: Acetaminophen 500 MG TAB PO SCH (11:32)
[2025-05-13] MEDS: Famotidine/PF 20 mg/2ml Vial SLOW IVP SCH (11:32)
[2025-05-13] MEDS: diphenhydrAMINE 50 MG/ML VIAL IVP SCH (11:32)
[2025-05-13 15:58] VITALS: BP 119/70; TEMP 98.2
== END 2025-05-13 15:33 | disposition home or self-care (01) ==
LOC: ONC/OP 09:34
PROVIDERS: ATTEND Internal Medicine
DX: D61.89 Other specified aplastic anemias and other bone marrow failure syndromes (principal); D69.49 Other primary thrombocytopenia; Z88.8 Allergy status to other drugs, medicaments and biological substances; Z88.5 Allergy status to narcotic agent; Z91.048 Other nonmedicinal substance allergy status
CPT/HCPCS: 36430; 86850; 86900; 86901; 86920; 96374; 96375; J1100; J1200; P9016; P9035; 80053

== ENCOUNTER 2025-05-20 09:48 | Day surgery (SDC) | payer MEDICARE, OTHER ==
[2025-05-20] MEDS ORDERED: diphenhydrAMINE 25 MG CAP PO SCH (10:15)
[2025-05-20] MEDS ORDERED: Acetaminophen 500 MG TAB ONE (10:39)
[2025-05-20] MEDS ORDERED: Dexamethasone 10 MG/ML VIAL ONE (10:39)
[2025-05-20] MEDS ORDERED: diphenhydrAMINE 50 MG/ML VIAL ONE (10:40)
[2025-05-20] MEDS ORDERED: Famotidine/PF 20 mg/2ml Vial ONE (10:40)
[2025-05-20] MEDS: Famotidine/PF 20 mg/2ml Vial SLOW IVP SCH (10:41)
[2025-05-20] MEDS: Dexamethasone 10 MG/ML VIAL SLOW IVP SCH (10:41)
[2025-05-20] MEDS: diphenhydrAMINE 50 MG/ML VIAL IVP SCH (10:41)
[2025-05-20] MEDS: Acetaminophen 500 MG TAB PO SCH (10:41)
[2025-05-20 16:27] VITALS: BP 145/70; TEMP 98.2
== END 2025-05-20 14:06 | disposition home or self-care (01) ==
LOC: ONC/OP 09:48
PROVIDERS: ATTEND Internal Medicine
DX: D69.49 Other primary thrombocytopenia (principal); D61.89 Other specified aplastic anemias and other bone marrow failure syndromes; Z88.8 Allergy status to other drugs, medicaments and biological substances; Z88.5 Allergy status to narcotic agent; Z91.048 Other nonmedicinal substance allergy status
CPT/HCPCS: 36430; 86850; 86900; 86901; 96375; J1100; J1200; P9035; 36415; 80053; 80158

== ENCOUNTER 2025-05-27 09:49 | Day surgery (SDC) | payer MEDICARE, OTHER ==
[2025-05-27] MEDS ORDERED: diphenhydrAMINE 50 MG/ML VIAL IVP SCH (10:15)
[2025-05-27] MEDS ORDERED: Dexamethasone 10 MG/ML VIAL SLOW IVP SCH (10:15)
[2025-05-27] MEDS ORDERED: Acetaminophen 500 MG TAB PO SCH (10:15)
[2025-05-27] MEDS ORDERED: Famotidine/PF 20 mg/2ml Vial SLOW IVP SCH (10:15)
[2025-05-27] MEDS ORDERED: diphenhydrAMINE 25 MG CAP PO SCH (10:15)
[2025-05-27] MEDS: Acetaminophen 500 MG TAB ONE (11:04)
[2025-05-27] MEDS: Dexamethasone 10 MG/ML VIAL ONE (11:04)
[2025-05-27] MEDS: diphenhydrAMINE 50 MG/ML VIAL ONE (11:04)
[2025-05-27] MEDS: Famotidine/PF 20 mg/2ml Vial ONE (11:05)
[2025-05-27 14:24] VITALS: BP 146/70; TEMP 98.2
== END 2025-05-27 14:40 | disposition home or self-care (01) ==
LOC: ONC/OP 09:49
PROVIDERS: ATTEND Internal Medicine
DX: D61.89 Other specified aplastic anemias and other bone marrow failure syndromes (principal); D69.49 Other primary thrombocytopenia; Z88.8 Allergy status to other drugs, medicaments and biological substances; Z88.5 Allergy status to narcotic agent; Z91.048 Other nonmedicinal substance allergy status
CPT/HCPCS: 36430; 86850; 86900; 86901; 86920; 96374; 96375; J1100; J1200; P9016; P9035; 80053

== ENCOUNTER 2025-06-10 09:25 | Day surgery (SDC) | payer OTHER ==
[2025-06-10] MEDS ORDERED: diphenhydrAMINE 25 MG CAP PO SCH (09:45)
[2025-06-10] MEDS ORDERED: diphenhydrAMINE 50 MG/ML VIAL IVP SCH (09:45)
[2025-06-10] MEDS ORDERED: diphenhydrAMINE 50 MG/ML VIAL ONE (10:27)
[2025-06-10] MEDS ORDERED: Dexamethasone 10 MG/ML VIAL ONE (10:27)
[2025-06-10] MEDS ORDERED: Acetaminophen 500 MG TAB ONE (10:27)
[2025-06-10] MEDS: Dexamethasone 10 MG/ML VIAL SLOW IVP SCH (10:28)
[2025-06-10] MEDS: Acetaminophen 500 MG TAB PO SCH (10:28)
[2025-06-10] MEDS ORDERED: Famotidine/PF 20 mg/2ml Vial ONE (10:28)
[2025-06-10] MEDS: Famotidine/PF 20 mg/2ml Vial SLOW IVP SCH (10:29)
[2025-06-10] MEDS: diphenhydrAMINE 50 MG/ML VIAL IVP SCH (10:47)
[2025-06-10 14:50] VITALS: BP 153/82; TEMP 98
== END 2025-06-10 14:51 | disposition home or self-care (01) ==
LOC: ONC/OP 09:25
PROVIDERS: ATTEND Internal Medicine
DX: D61.89 Other specified aplastic anemias and other bone marrow failure syndromes (principal); D69.49 Other primary thrombocytopenia; Z88.8 Allergy status to other drugs, medicaments and biological substances; Z88.5 Allergy status to narcotic agent; Z91.048 Other nonmedicinal substance allergy status
CPT/HCPCS: 36430; 86850; 86900; 86901; 86920; 96374; 96375; J1100; J1200; J1308; P9016; P9035; 80053

== ENCOUNTER 2025-06-24 11:48 | Day surgery (SDC) | payer OTHER ==
[2025-06-24] MEDS ORDERED: diphenhydrAMINE 25 MG CAP PO SCH (12:30)
[2025-06-24] MEDS ORDERED: diphenhydrAMINE 50 MG/ML VIAL ONE (12:52)
[2025-06-24] MEDS ORDERED: Acetaminophen 500 MG TAB ONE (12:52)
[2025-06-24] MEDS ORDERED: Dexamethasone 10 MG/ML VIAL ONE (12:52)
[2025-06-24] MEDS ORDERED: Famotidine/PF 20 mg/2ml Vial ONE (12:52)
[2025-06-24] MEDS: Acetaminophen 500 MG TAB PO SCH (12:57)
[2025-06-24] MEDS: diphenhydrAMINE 50 MG/ML VIAL IVP SCH (12:57)
[2025-06-24] MEDS: Dexamethasone 10 MG/ML VIAL SLOW IVP SCH (12:57)
[2025-06-24] MEDS: Famotidine/PF 20 mg/2ml Vial SLOW IVP SCH (12:57)
[2025-06-24 17:23] VITALS: BP 139/77; TEMP 98.5
== END 2025-06-24 17:18 | disposition home or self-care (01) ==
LOC: ONC/OP 11:48
PROVIDERS: ATTEND Internal Medicine
DX: D64.9 Anemia, unspecified (principal); D69.49 Other primary thrombocytopenia; Z88.5 Allergy status to narcotic agent; Z88.3 Allergy status to other anti-infective agents; Z91.09 Other allergy status, other than to drugs and biological substances; D61.89 Other specified aplastic anemias and other bone marrow failure syndromes
CPT/HCPCS: 36430; 80053; 86850; 86900; 86901; 86920; 96374; 96375; J1100; J1200; J1308; P9016; P9035

== ENCOUNTER → 2025-07-01 | Day surgery (SDC) | payer OTHER ==
[~2025-07-01] MED LIST changes: +Acetaminophen 500 MG TAB ONE; +Dexamethasone 10 MG/ML VIAL ONE; +Famotidine/PF 20 mg/2ml Vial ONE; +diphenhydrAMINE 50 MG/ML VIAL ONE
[2025-07-01] MEDS: Acetaminophen 500 MG TAB PO SCH (10:41)
[2025-07-01] MEDS: Famotidine/PF 20 mg/2ml Vial SLOW IVP SCH (10:41)
[2025-07-01] MEDS: Dexamethasone 10 MG/ML VIAL SLOW IVP SCH (10:41)
[2025-07-01] MEDS: diphenhydrAMINE 50 MG/ML VIAL IVP SCH (10:41)
[2025-07-01 14:21] VITALS: BP 143/75; TEMP 98.5
== END ==
LOC: ONC/OP 09:22
PROVIDERS: ATTEND Internal Medicine
DX: D69.49 Other primary thrombocytopenia (principal); D61.89 Other specified aplastic anemias and other bone marrow failure syndromes; Z88.5 Allergy status to narcotic agent; Z88.8 Allergy status to other drugs, medicaments and biological substances; Z91.048 Other nonmedicinal substance allergy status
CPT/HCPCS: 36430; 80053; 86850; 86900; 86901; 86920; 96374; 96375; J1100; J1200; J1308; P9016; P9035; 36415

== ENCOUNTER 2025-07-08 09:33 | Day surgery (SDC) | payer OTHER ==
[2025-07-08] MEDS ORDERED: diphenhydrAMINE 25 MG CAP PO SCH (10:45)
[2025-07-08] MEDS: Acetaminophen 500 MG TAB PO SCH (10:50)
[2025-07-08] MEDS ORDERED: Acetaminophen 500 MG TAB ONE (10:50)
[2025-07-08] MEDS ORDERED: Dexamethasone 10 MG/ML VIAL ONE (10:50)
[2025-07-08] MEDS ORDERED: Famotidine/PF 20 mg/2ml Vial ONE (10:50)
[2025-07-08] MEDS ORDERED: diphenhydrAMINE 50 MG/ML VIAL ONE (10:50)
[2025-07-08] MEDS: diphenhydrAMINE 50 MG/ML VIAL IVP SCH (10:51)
[2025-07-08] MEDS: Dexamethasone 10 MG/ML VIAL SLOW IVP SCH (10:51)
[2025-07-08] MEDS: Famotidine/PF 20 mg/2ml Vial SLOW IVP SCH (10:51)
[2025-07-08 15:56] VITALS: BP 127/72; TEMP 98.1
== END 2025-07-08 16:09 | disposition home or self-care (01) ==
LOC: ONC/OP 09:33
PROVIDERS: ATTEND Internal Medicine
DX: D69.49 Other primary thrombocytopenia (principal); D61.89 Other specified aplastic anemias and other bone marrow failure syndromes; Z88.5 Allergy status to narcotic agent; Z88.8 Allergy status to other drugs, medicaments and biological substances; Z91.041 Radiographic dye allergy status
CPT/HCPCS: 36430; 86850; 86900; 86901; 86920; 96374; 96375; J1100; J1200; J1308; P9016; P9035

== ENCOUNTER 2025-07-22 10:10 | Day surgery (SDC) | payer OTHER ==
[2025-07-22] MEDS ORDERED: diphenhydrAMINE 25 MG CAP PO SCH (10:45)
[2025-07-22] MEDS ORDERED: Acetaminophen 500 MG TAB ONE (10:51)
[2025-07-22] MEDS ORDERED: diphenhydrAMINE 50 MG/ML VIAL ONE (10:51)
[2025-07-22] MEDS ORDERED: Famotidine/PF 20 mg/2ml Vial ONE (10:51)
[2025-07-22] MEDS ORDERED: Dexamethasone 10 MG/ML VIAL ONE (10:51)
[2025-07-22] MEDS: Acetaminophen 500 MG TAB PO SCH (10:52)
[2025-07-22] MEDS: diphenhydrAMINE 50 MG/ML VIAL IVP SCH (10:53)
[2025-07-22] MEDS: Dexamethasone 10 MG/ML VIAL SLOW IVP SCH (10:53)
[2025-07-22] MEDS: Famotidine/PF 20 mg/2ml Vial SLOW IVP SCH (10:53)
[2025-07-22 13:21] VITALS: TEMP 98.1
[2025-07-22 13:24] VITALS: BP 159/72
== END 2025-07-22 13:25 | disposition home or self-care (01) ==
LOC: ONC/OP 10:10
PROVIDERS: ATTEND Internal Medicine
DX: D69.49 Other primary thrombocytopenia (principal); D61.89 Other specified aplastic anemias and other bone marrow failure syndromes; Z88.8 Allergy status to other drugs, medicaments and biological substances; Z88.5 Allergy status to narcotic agent; Z91.048 Other nonmedicinal substance allergy status
CPT/HCPCS: 36430; 86850; 86900; 86901; 96374; 96375; J1100; J1200; J1308; P9035

== ENCOUNTER 2025-07-31 09:48 | Day surgery (SDC) | payer OTHER ==
[2025-07-31] MEDS ORDERED: diphenhydrAMINE 50 MG/ML VIAL ONE (11:06)
[2025-07-31] MEDS ORDERED: Dexamethasone 10 MG/ML VIAL ONE (11:06)
[2025-07-31] MEDS ORDERED: Famotidine/PF 20 mg/2ml Vial ONE (11:07)
[2025-07-31] MEDS: Dexamethasone 10 MG/ML VIAL SLOW IVP SCH (11:09)
[2025-07-31] MEDS: diphenhydrAMINE 50 MG/ML VIAL IVP SCH (11:10)
[2025-07-31] MEDS: Famotidine/PF 20 mg/2ml Vial SLOW IVP SCH (11:10)
[2025-07-31] MEDS ORDERED: Acetaminophen 500 MG TAB PO SCH (11:15)
[2025-07-31 15:15] VITALS: TEMP 98.3
[2025-07-31 15:21] VITALS: BP 147/74
== END 2025-07-31 15:45 | disposition home or self-care (01) ==
LOC: ONC/OP 09:48
PROVIDERS: ATTEND Internal Medicine
DX: D61.89 Other specified aplastic anemias and other bone marrow failure syndromes (principal); D69.49 Other primary thrombocytopenia; Z88.5 Allergy status to narcotic agent; Z88.8 Allergy status to other drugs, medicaments and biological substances; Z91.048 Other nonmedicinal substance allergy status
CPT/HCPCS: 36430; 86850; 86900; 86901; 86920; J1100; J1200; J1308; P9016; P9035; 80053; 80158

== ENCOUNTER 2025-08-05 09:39 | Day surgery (SDC) | payer OTHER, MEDICARE ==
[2025-08-05] MEDS ORDERED: Acetaminophen 500 MG TAB ONE (10:56)
[2025-08-05] MEDS: diphenhydrAMINE 25 MG CAP PO SCH (10:56)
[2025-08-05] MEDS ORDERED: diphenhydrAMINE 25 MG CAP ONE (10:56)
[2025-08-05] MEDS: Acetaminophen 500 MG TAB PO SCH (10:57)
[2025-08-05 13:48] VITALS: BP 141/75; TEMP 98.2
== END 2025-08-05 14:04 | disposition home or self-care (01) ==
LOC: ONC/OP 09:39
PROVIDERS: ATTEND Internal Medicine
DX: D64.9 Anemia, unspecified (principal); D69.6 Thrombocytopenia, unspecified; Z88.5 Allergy status to narcotic agent; Z88.8 Allergy status to other drugs, medicaments and biological substances; Z91.09 Other allergy status, other than to drugs and biological substances
CPT/HCPCS: 36430; 86850; 86900; 86901; 86920; P9016

== ENCOUNTER 2025-08-12 09:10 | Day surgery (SDC) | payer OTHER ==
[2025-08-12] MEDS ORDERED: diphenhydrAMINE 25 MG CAP PO SCH (10:00)
[2025-08-12] MEDS ORDERED: Acetaminophen 500 MG TAB ONE (10:25)
[2025-08-12] MEDS ORDERED: diphenhydrAMINE 50 MG/ML VIAL ONE (10:25)
[2025-08-12] MEDS ORDERED: Dexamethasone 10 MG/ML VIAL ONE (10:25)
[2025-08-12] MEDS ORDERED: Famotidine/PF 20 mg/2ml Vial ONE (10:25)
[2025-08-12] MEDS: Dexamethasone 10 MG/ML VIAL SLOW IVP SCH (10:26)
[2025-08-12] MEDS: Acetaminophen 500 MG TAB PO SCH (10:26)
[2025-08-12] MEDS: Famotidine/PF 20 mg/2ml Vial SLOW IVP SCH (10:26)
[2025-08-12] MEDS: diphenhydrAMINE 50 MG/ML VIAL IVP SCH (10:26)
[2025-08-12 12:31] VITALS: TEMP 97.9
[2025-08-12 14:14] VITALS: BP 153/76
== END 2025-08-12 13:16 | disposition home or self-care (01) ==
LOC: ONC/OP 09:10
PROVIDERS: ATTEND Internal Medicine
DX: D69.49 Other primary thrombocytopenia (principal); D61.89 Other specified aplastic anemias and other bone marrow failure syndromes; Z88.8 Allergy status to other drugs, medicaments and biological substances; Z88.5 Allergy status to narcotic agent; Z91.048 Other nonmedicinal substance allergy status
CPT/HCPCS: 36430; 86850; 86900; 86901; 96374; 96375; J1100; J1200; J1308; P9035